=== PATIENT | male | born 2000 | race Caucasian/White ===

== ENCOUNTER 2020-05-12 16:51 | Emergency (ER) | payer MEDICAID, SELFPAY ==
[2020-05-12 17:02] VITALS: BP 137/86; PULSE 98; RESP 18; TEMP 36.7; O2SAT 98; BMI 19.9
--- NOTE | 2020-05-12 17:47 | XR_ITS ---
EXAMINATION: XR FOOT, RIGHT CLINICAL INFORMATION: Laceration. COMPARISON: None TECHNIQUE: AP, lateral, and oblique views of the right foot. FINDINGS: The bones and soft tissues are normal. No fracture. Alignment is anatomic. Joint spaces are maintained. XR/XR foot RT min 3V IMPRESSION: Unremarkable right foot exam.
[2020-05-12] MEDS: Lidocaine HCl 2 % MPF 5 ML VIAL SUBCUT (18:18)
--- NOTE | 2020-05-12 18:20 | ED_ITS ---
HPI - Wound/Laceration General Chief Complaint: Wound/Laceration Stated Complaint: LEG LAC Time Seen by Provider: 05/12/20 17:43 Source: patient Mode of arrival: ambulatory Limitations: no limitations History of Present Illness HPI narrative: 19-year-old male with no significant past medical history presents with laceration to the dorsal aspect of the right lateral foot. Patient states he was walking and cut himself on a broken piece of glass. He has full range of motion, was able to clean out the wound and applied a bandage. Bleeding is well controlled and patient was able to ambulate into this facility without assistance. He does not recall when his last Tdap vaccine was updated. He has no other concerns or complaints at this time. Onset (ago): hour(s) (Within the hour of arrival) Extremity Location: right: foot Place: home Patient tetanus UTD: No Context: accidental Associated symptoms: pain Treatments prior to arrival: bandage Related Data Allergies Allergy/AdvReac Type Severity Reaction Status Date / Time No Known Allergies Allergy Verified 05/12/20 17:01 Review of Systems Review of Systems: Constitutional: No Fever, No Chills ENT/Mouth: No Ear Pain, No Hoarseness, No sore throat Eyes: No Eye Pain, No Swelling, No Redness, No Foreign Body Cardiovascular: No Chest Pain, No SOB Respiratory: No Cough, No Dyspnea Gastrointestinal: No Nausea, No Vomiting, No Diarrhea, No abdominal Pain Genitourinary: No Dysuria, No Hematuria Musculoskeletal: positive right foot pain, No Myalgias, No Joint Swelling Skin: Positive laceration right lateral dorsal aspect of the foot, No rash Neuro: No Weakness, No Numbness, No Paresthesias, No Loss of Consciousness, No Dizziness, No Headache Psych: No Anxiety/Panic, No Depression Heme/Lymph: no easy bruising, no Lymphadenopathy Endocrine: No Polyuria, No Polydipsia Yes all other systems are reviewed and are negative [facility] Past Medical History Attestation statement: The following information was validated with the patient. Source: old records reviewed Social History Social History Smoking Status: Never smoker Use of substances other than those prescribed or required for medical reasons: No Advance Directives: No Advance Directives Information Provided: No Physical Exam Vital Signs: Vital Signs: Last Vital Signs Temp 98.1 F 05/12/20 17:02 Pulse 98 05/12/20 17:02 Resp 18 05/12/20 17:02 BP 137/86 05/12/20 17:02 Pulse Ox 98 05/12/20 17:02 Body Mass Index 19.9 Appearance: Alert. Oriented X3. No acute distress. Eyes: Pupils equal, round and reactive to light. ENT: Pharynx normal. Neck: Normal inspection. Neck supple. CVS: Normal heart rate and rhythm. Pulses normal. Respiratory: No respiratory distress. Breath sounds normal. Abdomen: Soft and nontender. Skin: 1.5 cm laceration to the dorsal aspect of the right foot. Skin warm and dry. Normal skin color. Normal skin turgor. Extremities: No lower extremity edema. Full range of motion to all extremities, brisk capillary refill and equal pedal pulses. Neuro: No motor deficit. No sensory deficit. Course Course Course Narrative: 19-year-old male with laceration to his right foot. Plan of care is for x-rays, Tdap vaccine and to repair laceration. Please refer to procedure note for full details. Prepped and draped in sterile fashion. Patient tolerated procedure well. X-rays negative for foreign body. Patient continues to have brisk capillary refill and equal pedal pulses with full range of motion without focal neural deficit or sensory deficit to bilateral lower extremities status post laceration repair. Patient verbalized understanding of and agrees to plan of care discharge home. Procedures Laceration Laceration 1: Site: lower extremity Side (If applicable): right Size (cm): 1.5 Description: linear Depth: simple, single layer Local Anesthetic: lidocaine 2% Amount of anesthesia used (mL): 4 Pre-repair: wound explored, irrigated extensively and deep structures intact Skin layer closed with: nylon Size (cm): 4-0 Number of sutures: 3 Technique: simple, interrupted MDM - Wound/Laceration Differential Diagnosis Differential diagnosis: Likely laceration Medical Records Attestation: I reviewed the patient's medical records. Imaging Data Right foot x-ray: Attestation: I personally reviewed and interpreted this imaging study as follows: Radiologist's impression: EXAMINATION: XR FOOT, RIGHT CLINICAL INFORMATION: Laceration. COMPARISON: None TECHNIQUE: AP, lateral, and oblique views of the right foot. FINDINGS: The bones and soft tissues are normal. No fracture. Alignment is anatomic. Joint spaces are maintained. XR/XR foot RT min 3V IMPRESSION: Unremarkable right foot exam. Discharge Plan Discharge Clinical Impression: Laceration Patient Disposition: Home, Self-Care Instructions: Laceration (ED) Additional Instructions: You were evaluated for laceration to the right foot. Please keep the area clean and dry, do not soak or bathe or submerge foot in water for long periods of time until the wound is completely healed. Please return in 10 days to have sutures removed. Monitor for signs and symptoms of infection including but not limited to swelling, purulent drainage, and increased pain. If you notice these symptoms please seek medical attention the emergency department or primary care. Thank you for choosing this emergency department for evaluation. Please follow-up with primary care physician as needed. Return to the emergency department for any new, concerning, or worsening symptoms. Interventions: ED Discharge Assessment Last Done: 05/12/20 18:28 Discharge Date/Time: 05/12/20 18:30
== END 2020-05-12 18:30 | disposition home or self-care (01) ==
PROVIDERS: Emergency Provider Emergency Medicine Emergency Medical Services
DX: S91.311A Laceration without foreign body, right foot, initial encounter (principal); M79.671 Pain in right foot; W25.XXXA Contact with sharp glass, initial encounter; Y93.89 Activity, other specified; Y92.89 Other specified places as the place of occurrence of the external cause
CPT/HCPCS: 12001; 73630; 90471; 90715; 99284

== ENCOUNTER 2021-11-06 08:04 | Emergency (ER) | payer MEDICAID, SELFPAY ==
--- NOTE | ~2021-11-06 | XR_ITS ---
EXAMINATION: XR RIBS, LEFT CLINICAL INFORMATION: Posterior left rib pain for 2 days. COMPARISON: None TECHNIQUE: PA view of the chest as well as 3 views of the left ribs. FINDINGS: Lungs are clear. No consolidation, pneumothorax, or pleural effusion. The cardiomediastinal silhouette and pulmonary vasculature are normal. Osseous structures are unremarkable. Ribs are intact. No fractures are identified. XR/XR ribs LT min 3V w CXR1V IMPRESSION: No displaced fracture.
[2021-11-06 09:04] VITALS: BP 116/65; PULSE 63; RESP 17; TEMP 36.6; O2SAT 98; BMI 18.3
--- NOTE | 2021-11-06 12:36 | ED.BACK ---
HPI - Back Pain/Injury General Chief Complaint: Back Pain/Injury Stated Complaint: Back pain Time Seen by Provider: 11/06/21 12:27 Source: patient Mode of arrival: ambulatory Limitations: no limitations History of Present Illness HPI Narrative: 21-year-old male with no significant medical history presents for back pain. Patient states that 4 days ago, he lifted a heavy trash bag and twisted his torso lifting it. States that the next day he felt pain in his back, especially on his left side. States the pain is worse with twisting. No blunt trauma, no fevers, leg weakness, saddle paresthesias, hematuria, urinary retention, urinary or bowel incontinence, no history of IV drug use. MD elicited complaint: back pain Pertinent past history: recent trauma Onset (ago): day(s) (4) Timing: constant Severity: moderate Related Data Previous Rx's Medication Instructions Recorded cyclobenzaprine 5 mg tablet 5 mg PO TID PRN muscle spasm #7 11/06/21 tabs ketorolac 10 mg tablet 10 mg PO TID 5 days #15 tabs 11/06/21 Allergies Allergy/AdvReac Type Severity Reaction Status Date / Time No Known Allergies Allergy Verified 05/12/20 17:01 Review of Systems Constitutional: Constitutional: Denies body ache(s), Denies chills, Denies fatigue, Denies fever(s), Denies malaise and Denies weakness Eyes: Eyes: Denies diplopia Cardiovascular: Cardiovascular: Denies chest pain, Denies syncope, Denies leg edema, Denies lightheadedness, Denies Loss of Consciousness, Denies palpitations and Denies dyspnea Respiratory: Respiratory: Denies chest congestion, Denies cough and Denies dyspnea Gastrointestinal: Gastrointestinal: Denies abdominal pain, Denies hematochezia, Denies constipation, Denies fecal incontinence, Denies diarrhea and Denies vomiting Genitourinary: Genitourinary: Denies difficulty urinating and Denies urinary incontinence Musculoskeletal: Musculoskeletal: Reports back pain Neurologic: Denies confusion, Denies syncope and Denies weakness Psychiatric: Psychiatric: Denies anxiety, Denies confusion and Denies depression Endocrine: Endocrine: Denies fatigue and Denies palpitations PMFSH Social History Social History Advance Directives: No Advance Directives Information Provided: Yes Physical Exam Vital Signs: Vital Signs: Last Vital Signs Temp 98 F 11/06/21 09:04 Pulse 63 11/06/21 09:04 Resp 17 11/06/21 09:04 BP 116/65 11/06/21 09:04 Pulse Ox 98 11/06/21 09:04 O2 Del Method 11/06/21 09:04 BMI result Body Mass Index 18.3 Const: General: No confusion Nutritional Appearance: well nourished Orientation/consciousness: No confusion Limitations: no limitations Eyes: Conjunctivae: conjunctivae normal Pupils: Equal, round and reactive pupils present EOM: EOMs intact bilaterally Neck: Neck: Yes full ROM, Yes no lymphadenopathy and Yes supple Chest: Chest palpation & inspection: normal inspection of the chest, no crepitus and localized rib tenderness with anteroposterior compression left anterior-axillary line Resp: Effort & Inspection: normal respiratory effort and able to speak in complete sentences Auscultation: clear to auscultation bilaterally, no crackles, no rales, no rhonchi and no wheezes Cardio: Rate: regular rate Rhythm: regular rhythm Heart sounds: S1 normal heart sound present and S2 normal heart sound present GI: Inspection: Yes normal to inspection Palpation (GI): Soft to palpation, nontender, no guarding and not rigid Percussion: Yes normal to percussion Auscultation: normal bowel sounds : General: Yes no CVA tenderness Back/Spine/Pelvis: Back: no CVA tenderness Cervical Spine: normal cervical lordosis, cervical ROM normal, No Cervical spine tenderness and No step off deformity Thoracic/Lumbar Spine: straight leg raise negative bilaterally, No thoraco-lumbar spasm, No thoracic spinal tenderness and No lumbar spinal tenderness Skin: General skin exam: no rashes or lesions noted Neuro: General: No confusion Cranial nerves: Yes Equal, round and reactive pupils present Extrem: Right lower extremity: normal to inspection, full ROM and normal capillary refill Left lower extremity: normal to inspection, full ROM and normal capillary refill Psych: Appearance: grossly normal Affect: normal affect Attitude: cooperative Thought process: Normal thought process present Course Course Course Narrative: 21-year-old male presents with left-sided rib pain after lifting heavy garbage bag and twisting 4 days ago. On exam, patient has stable vitals, patient has no CVA tenderness, no vertebral tenderness, straight leg raise is negative, patient has no red flag symptoms. Patient is tender to palpation over his left anterior ribs. Most likely musculoskeletal, will rule out fracture with x-ray, give Toradol and Flexeril Reevaluation(s) Reevaluation #1: Patient is feeling better with ketorolac and Flexeril. Rib x-rays are negative. Will send home with the ketorolac and Flexeril, follow-up with primary care provider FINDINGS: Lungs are clear. No consolidation, pneumothorax, or pleural effusion. The cardiomediastinal silhouette and pulmonary vasculature are normal. Osseous structures are unremarkable. Ribs are intact. No fractures are identified. XR/XR ribs LT min 3V w CXR1V IMPRESSION: No displaced fracture. Discharge Plan Discharge Clinical Impression: Rib pain on left side Patient Disposition: Home, Self-Care Additional Instructions: I have prescribed ketorolac to your pharmacy, please take this 3 times a day for the next 5 days. Do not take any ibuprofen containing products while your taking this medication. I have also prescribed cyclobenzaprine, this is a muscle relaxant, it can make you sleepy, so do not drive her sign any important papers while you are on it, you may take it at night to help you sleep. Please call your primary care provider for follow-up appointment from today's emergency room visit. Please return to the emergency room for any new or concerning symptoms. Prescriptions: New ketorolac 10 mg tablet 10 mg PO TID 5 Days Qty: 15 0RF cyclobenzaprine 5 mg tablet 5 mg PO TID PRN (Reason: muscle spasm) Qty: 7 0RF
[2021-11-06] MEDS: Cyclobenzaprine HCl 10 MG TABLET PO (12:42)
[2021-11-06] MEDS: Ketorolac Tromethamine 30 MG/ML VIAL IM (12:42)
== END 2021-11-06 15:08 | disposition home or self-care (01) ==
PROVIDERS: Emergency Provider Emergency Medicine
DX: M54.50 Low back pain, unspecified (principal); R07.81 Pleurodynia; Z79.899 Other long term (current) drug therapy
CPT/HCPCS: 71101; 96372; 99283; 99284; J1885

== ENCOUNTER 2022-05-12 19:30 | Emergency (ER) | payer MEDICAID, SELFPAY ==
[2022-05-12 19:42] VITALS: BP 145/91; PULSE 108; RESP 18; TEMP 37.2; O2SAT 97; BMI 19.2
--- NOTE | 2022-05-12 19:44 | ED.GENADULT ---
HPI - General Adult General Chief complaint: General Medical Stated complaint: STD check Time Seen by Provider: 05/12/22 19:44 Source: patient Mode of arrival: ambulatory Limitations: no limitations History of Present Illness HPI narrative: 21 yo male presents to the ER for evaluation of possible STI. He states he was intoxicated this weekend and thinks he had unprotected sex. He wants to be checked and treated for STIs. He denies any symptoms at this time. No urinary symptoms. Denies rashes or lesions. No N/V/D, abdominal pain or testicular pain complaint: STI check Onset (ago): day(s) Location: genitals Radiation: non-radiation Relieving factors: none Exacerbating factors: none Associated symptoms: denies other symptoms Treatments prior to arrival: none Related Data Previous Rx's Medication Instructions Recorded cyclobenzaprine 5 mg tablet 5 mg PO TID PRN muscle spasm #7 11/06/21 tabs ketorolac 10 mg tablet 10 mg PO TID 5 days #15 tabs 11/06/21 doxycycline hyclate 100 mg tablet 100 mg PO BID #13 tabs 05/12/22 Allergies Allergy/AdvReac Type Severity Reaction Status Date / Time No Known Allergies Allergy Verified 05/12/22 19:44 Review of Systems Review of Systems: Yes all other systems are reviewed and are negative Physical Exam ED Vital Signs: Vital Signs - 24 hr 05/12/22 19:42 Temperature 99 F Pulse Rate 108 H Respiratory Rate 18 Blood Pressure 145/91 H Pulse Oximetry 97 Oxygen Delivery Method Room Air BMI result Body Mass Index 19.2 Appearance: Alert. Oriented X3. No acute distress. HEENT: normal inspection CVS: Normal heart rate and rhythm. Respiratory: No respiratory distress. Skin: Skin warm and dry. Normal skin color. Normal skin turgor. No rashes. Extremities: normal inspection Neuro: Oriented X 3. grossly normal, nonfocal Course Course Course Narrative: 21 yo male presents for STI check and treatment. Denies symptoms. Will give IM rocephin and d/c home on PO doxycyline. Encouraged to go to [facility] for further STI testing. Stable for d/c [facility] Medical Decision Making Differential Diagnosis Differential Diagnoses: The differential diagnosis associated with the presentation includes STI, HSV, urethritis, UTI, HPV, HIV, syphilis External Record Review External record reviewed: Prior outpatient radiology Prescription Management I considered prescription management with: Antibiotic empiric treatment started Discharge Plan Discharge Clinical Impression: High risk heterosexual behavior Patient Disposition: Home, Self-Care Additional Instructions: You were tested and treated for possible Gonorrhea and Chlamydia. Take the prescribed antibiotic starting tomorrow morning, you were given 1st dose today in the ER. If you tests come back positive we will call you. If we do not call you, they were negative. Recommend setting up the patient portal so you can check the results yourself. Results can take several days. Prescriptions: New doxycycline hyclate 100 mg tablet 100 mg PO BID Qty: 13 0RF No Action ketorolac 10 mg tablet 10 mg PO TID 5 Days Qty: 15 0RF cyclobenzaprine 5 mg tablet 5 mg PO TID PRN (Reason: muscle spasm) Qty: 7 0RF
[2022-05-12] MEDS: cefTRIAXone sodium 500 MG, Lidocaine HCl 1 % MPF 1 ML IM (19:55)
[2022-05-12] MEDS: Doxycycline Monohydrate 100 MG CAPSULE PO (19:56)
--- NOTE | 2022-05-13 00:06 | ED.GENADULT ---
HPI - General Adult General Chief complaint: General Medical Stated complaint: STD check Time Seen by Provider: 05/12/22 19:44 Source: patient Mode of arrival: ambulatory Limitations: no limitations History of Present Illness HPI narrative: This is a 21-year-old male presenting to the emergency department requesting a test that will tell him when the last time he had sex was. Patient was seen earlier today for STD check and was medicated with doxycycline and Keflex. Patient has no additional complaints at this time. He is just wondering if the test exist that can tell him when the last time he had sex was. He tells me he does not remember. Location: genitals Relieving factors: none Exacerbating factors: none Associated symptoms: denies other symptoms Treatments prior to arrival: none Related Data Previous Rx's Medication Instructions Recorded cyclobenzaprine 5 mg tablet 5 mg PO TID PRN muscle spasm #7 11/06/21 tabs ketorolac 10 mg tablet 10 mg PO TID 5 days #15 tabs 11/06/21 doxycycline hyclate 100 mg tablet 100 mg PO BID #13 tabs 05/12/22 Allergies Allergy/AdvReac Type Severity Reaction Status Date / Time No Known Allergies Allergy Verified 05/12/22 19:44 Review of Systems Review of Systems: Constitutional : No Weight loss, No Fever, No Chills, No Fatigue, No Malaise ENT/Mouth : No sore throat, No Rhinorrhea Eyes: No Eye Pain, No Swelling, No Redness Cardiovascular : No Chest Pain, No SOB, No Dyspnea on Exertion, No Orthopnea, No Edema, No Palpitations Respiratory : No Cough, No Sputum, No Wheezing Gastrointestinal : No Nausea, No Vomiting, No Diarrhea, No Constipation, No abdominal Pain, No Hematochezia, No Melena Genitourinary : No Dysuria, No Urinary Frequency, No Hematuria, Musculoskeletal : No joint pain, No Myalgias, No Joint Swelling Skin : No Skin Lesions, No rash Neuro : No Weakness, No Numbness, No Dizziness, No Headache Psych : No Anxiety/Panic, No Depression All other systems reviewed and are negative Yes all other systems are reviewed and are negative [facility] Social History Social History Advance Directives: No Advance Directives Information Provided: Yes Physical Exam ED Vital Signs: Vital Signs - 24 hr 05/12/22 19:42 Temperature 99 F Pulse Rate 108 H Respiratory Rate 18 Blood Pressure 145/91 H Pulse Oximetry 97 Oxygen Delivery Method Room Air BMI result Body Mass Index 19.2 Vital signs stable Appearance: Alert.? Oriented X3.? No acute distress.? Head: Normocephalic, atraumatic, no step-offs or deformities Eyes: Pupils equal, round and reactive to light.? CVS: Normal heart rate and rhythm.? Pulses normal.? Respiratory: No respiratory distress.? Breath sounds normal.? Abdomen: Soft and nontender.? Skin: Skin warm and dry.? Normal skin color.? Normal skin turgor.? Extremities 5/5 strength to bilateral upper and lower extremities Neuro: Oriented X 3.? No motor deficit.? No sensory deficit. CN 2-12 intact Medications Administered Discontinued Medications Generic Name Dose Route Start Last Admin Trade Name Freq PRN Reason Stop Dose Admin Ceftriaxone Sodium 500 mg/ 0 mg 05/12/22 19:43 05/12/22 19:55 Lidocaine HCl 1 ml IM 05/12/22 19:44 1 kit ONCE ONE Administration Doxycycline Monohydrate 100 mg 05/12/22 19:43 05/12/22 19:56 Doxycycline Monohydrate 100 Mg Capsule PO 05/12/22 19:44 100 mg ONCE ONE Administration Medical Decision Making Medical Decision Making [facility] Narrative: 21-year-old male presents requesting testing that will determine when the last time patient had sex was Physical exam benign I explained to patient that a test like this does not exist. I explained we can do STD testing but patient tells me that he had that done earlier. Plan- dc home Differential Diagnosis Differential Diagnoses: The differential diagnosis associated with the presentation includes STD/STI, high-risk heterosexual sexual behavior Discharge Plan Discharge Clinical Impression: High risk heterosexual behavior Patient Disposition: Home, Self-Care Instructions: Sexually Transmitted Diseases (ED), Safe Sex Practices (ED) Additional Instructions: You were tested and treated for possible Gonorrhea and Chlamydia. Take the prescribed antibiotic starting tomorrow morning, you were given 1st dose today in the ER. If you tests come back positive we will call you. If we do not call you, they were negative. Recommend setting up the patient portal so you can check the results yourself. Results can take several days. Prescriptions: New doxycycline hyclate 100 mg tablet 100 mg PO BID Qty: 13 0RF No Action ketorolac 10 mg tablet 10 mg PO TID 5 Days Qty: 15 0RF cyclobenzaprine 5 mg tablet 5 mg PO TID PRN (Reason: muscle spasm) Qty: 7 0RF Interventions: ED Discharge Assessment Last Done: 05/12/22 20:00 Discharge Date/Time: 05/12/22 20:01
== END 2022-05-12 20:01 | disposition home or self-care (01) ==
PROVIDERS: Emergency Provider Emergency Medicine
DX: Z20.2 Contact with and (suspected) exposure to infections with a predominantly sexual mode of transmission (principal); Z72.51 High risk heterosexual behavior
CPT/HCPCS: 96372; 99282; 99284; J0696

== ENCOUNTER 2022-05-12 23:42 | Emergency (ER) | payer MEDICAID, SELFPAY ==
[2022-05-12 23:44] VITALS: BP 127/92; PULSE 99; RESP 20; TEMP 37.3; O2SAT 96; BMI 19.2
--- NOTE | 2022-05-12 23:55 | ED.GENADULT ---
HPI - General Adult General Chief complaint: General Medical Stated complaint: was here earlier, says wrong STI test Source: patient Mode of arrival: ambulatory Limitations: no limitations History of Present Illness HPI narrative: This is a 21-year-old male presenting to the emergency department requesting a test that will tell him when the last time he had sex was.? Patient was seen earlier today for STD check and was medicated with doxycycline and rocephin.? Patient has no additional complaints at this time.? He is just wondering if the test exist that can tell him when the last time he had sex was.? He tells me he does not remember. Related Data Previous Rx's Medication Instructions Recorded cyclobenzaprine 5 mg tablet 5 mg PO TID PRN muscle spasm #7 11/06/21 tabs ketorolac 10 mg tablet 10 mg PO TID 5 days #15 tabs 11/06/21 doxycycline hyclate 100 mg tablet 100 mg PO BID #13 tabs 05/12/22 Allergies Allergy/AdvReac Type Severity Reaction Status Date / Time No Known Allergies Allergy Verified 05/12/22 19:44 Review of Systems Review of Systems: Constitutional : No Weight loss, No Fever, No Chills, No Fatigue, No Malaise ENT/Mouth : No sore throat, No Rhinorrhea Eyes: No Eye Pain, No Swelling, No Redness Cardiovascular : No Chest Pain, No SOB, No Dyspnea on Exertion, No Orthopnea, No Edema, No Palpitations Respiratory : No Cough, No Sputum, No Wheezing Gastrointestinal : No Nausea, No Vomiting, No Diarrhea, No Constipation, No abdominal Pain, No Hematochezia, No Melena Genitourinary : No Dysuria, No Urinary Frequency, No Hematuria, Musculoskeletal : No joint pain, No Myalgias, No Joint Swelling Skin : No Skin Lesions, No rash Neuro : No Weakness, No Numbness, No Dizziness, No Headache Psych : No Anxiety/Panic, No Depression Yes all other systems are reviewed and are negative [facility] Past Medical History Attestation statement: The following information was validated with the patient. Source: old records reviewed and nursing notes reviewed Social History Social History Advance Directives: No Advance Directives Information Provided: Yes Physical Exam ED Vital Signs: Vital Signs - 24 hr 05/12/22 23:44 Temperature 99.1 F Pulse Rate 99 Respiratory Rate 20 Blood Pressure 127/92 H Pulse Oximetry 96 Oxygen Delivery Method Room Air BMI result Body Mass Index 19.2 vss Appearance: Alert.? Oriented X3.? No acute distress.? Head:? Normocephalic, atraumatic, no step-offs or deformities Eyes: Pupils equal, round and reactive to light.? CVS: Normal heart rate and rhythm.? Pulses normal.? Respiratory: No respiratory distress.? Breath sounds normal.? Abdomen: Soft and nontender.? Skin: Skin warm and dry.? Normal skin color.? Normal skin turgor.? Extremities 5/5 strength to bilateral upper and lower extremities Neuro: Oriented X 3.? No motor deficit.? No sensory deficit. CN 2-12 intact Medical Decision Making Medical Decision Making MDM Narrative: 21-year-old male presents requesting testing that will determine when the last time patient had sex was Physical exam benign I explained to patient that a test like this does not exist. I explained we can do STD testing but patient tells me that he had that done earlier. Plan- dc home Differential Diagnosis Differential Diagnoses: The differential diagnosis associated with the presentation includes STD/STI, high-risk heterosexual sexual behavior Critical Care Time Critical Care Time Critical Care Time: No Discharge Plan Discharge Clinical Impression: High risk heterosexual behavior Patient Disposition: Home, Self-Care Instructions: Sexually Transmitted Diseases (ED), Safe Sex Practices (ED) Additional Instructions: Take your medications as prescribed. If you were prescribed antibiotics today, it is important that you take your medication to their entirety, do not skip any doses, do not finish them early. Follow-up with your primary care provider this week. Return to the emergency department with new or worsening symptoms. Such as fevers, chills, chest pain, shortness of breath, nausea, vomiting, dizziness, headache, vision changes, lethargy In case of emergency call 911 Prescriptions: No Action ketorolac 10 mg tablet 10 mg PO TID 5 Days Qty: 15 0RF cyclobenzaprine 5 mg tablet 5 mg PO TID PRN (Reason: muscle spasm) Qty: 7 0RF doxycycline hyclate 100 mg tablet 100 mg PO BID Qty: 13 0RF Referrals: Physician,Unknown J [Primary Care Provider] - 2 days Interventions: ED Discharge Assessment Last Done: 05/13/22 00:02 Discharge Date/Time: 05/13/22 00:03
== END 2022-05-13 00:03 | disposition home or self-care (01) ==
PROVIDERS: Emergency Provider Emergency Medicine
DX: Z72.51 High risk heterosexual behavior (principal)
CPT/HCPCS: 99282

== ENCOUNTER 2023-08-27 17:14 | Emergency (ER) | payer MEDICAID, SELFPAY ==
[2023-08-27 17:51] VITALS: BP 115/64; PULSE 72; RESP 20; TEMP 36.9; O2SAT 98; BMI 20.7
--- NOTE | 2023-08-27 17:53 | ED.MALEGU ---
HPI - Male Genitourinary General Chief complaint: Urogenital-Male Stated complaint: std check Time Seen by Provider: 08/27/23 19:22 Source: patient Mode of arrival: ambulatory Limitations: no limitations History of Present Illness HPI Narrative: 23-year-old male no past medical history presents to ED for STD check. Patient states usually she gets STD checks every couple of months. Patient denies any symptoms. Patient denies any recent sexual partner or sexual activity. Patient denies any genitourinary symptoms. Related Data Previous Rx's ?Medication ?Instructions ?Recorded cyclobenzaprine 5 mg tablet 5 mg PO TID PRN muscle spasm #7 11/06/21 tabs ketorolac 10 mg tablet 10 mg PO TID 5 days #15 tabs 11/06/21 doxycycline hyclate 100 mg tablet 100 mg PO BID #13 tabs 05/12/22 Allergies Allergy/AdvReac Type Severity Reaction Status Date / Time No Known Allergies Allergy Verified 08/27/23 17:52 Review of Systems Review of Systems: Wants STD check Yes all other systems are reviewed and are negative [facility] Social History Social History Smoked in Last 30 Days: No Use of substances other than those prescribed or required for medical reasons: No Advance Directives: No Advance Directives Information Provided: No Physical Exam Vital Signs: Vital Signs: Last Vital Signs Temp 97.1 F 08/27/23 20:43 Pulse 60 08/27/23 20:43 Resp 16 08/27/23 20:43 BP 125/76 08/27/23 20:43 Pulse Ox 98 08/27/23 20:43 O2 Del Method Room Air 08/27/23 20:43 BMI result Body Mass Index 20.7 Const: General: cooperative, healthy appearing, comfortable, no acute distress, well developed, alert and awake Orientation/consciousness: oriented to person, oriented to place, oriented to time and patient oriented x3 HEENT: Head: Yes normal to inspection, Yes No palpable skull fracture present, Yes normocephalic, Yes atraumatic and No abrasion Eyes: General: appearance normal, both eyes and all related structures Neck: Neck: Yes normal visual inspection, Yes full ROM, Yes no lymphadenopathy, Yes no meningeal signs, Yes trachea midline, Yes supple, No anterior neck swelling and No tender Chest: Chest palpation & inspection: normal inspection of the chest and normal palpation of entire chest wall Resp: Effort & Inspection: normal respiratory effort and able to speak in complete sentences Auscultation: clear to auscultation bilaterally Cardio: Jugular venous distension: no JVD Heart sounds: S1 normal heart sound present and S2 normal heart sound present GI: Inspection: Yes normal to inspection Palpation (GI): Soft to palpation, not firm, nontender, no guarding and not rigid : Other: REfuse genitourinary exam General: No CVA tenderness and Yes no CVA tenderness Back/Spine/Pelvis: Back: no CVA tenderness, No CVA tenderness and No back tenderness Skin: General skin exam: no rashes or lesions noted, elasticity normal and turgor normal Neuro: General: oriented to person, oriented to place, oriented to time, patient oriented x3, gait normal, tone normal, moves all extremities, Normal light touch and pain sensation, no meningeal signs, no focal motor deficits, CN's II-XI intact bilaterally and normal sensation to monofilament Extrem: General: Yes normal to inspection, Yes full ROM and Yes capillary refill normal Psych: Appearance: grossly normal, well kempt and not disheveled Course Course Course Narrative: RME: 23-year-old male presents to ED for routine STD check. Patient states asymptomatic and has not been sexually active. Patient states no new partner. Patient just periodically checked for STD cleaning gonorrhea. Patient asymptomatic. Medical Decision Making Medical Decision Making [facility] Narrative: 23 yold male presents to the ED for for STD check. Patient wants routine STD check but has not been active. Patient refused exam. Patient preferred to be with and covered with the results instead of empiric treatment. Patient informed of go to [facility] testing of HIV hepatitis and other STDs. Patient explained worrisome signs Lab Data Labs: Lab Results 08/27/23 Range/Units 19:33 Urine Color Yellow Urine Appearance Clear Urine pH 6.0 (5.0-9.0) Ur Specific [place] 1.020 (1.005-1.025) Urine Protein Negative (Neg-Trace) mg/dL Urine Glucose (UA) Negative (Negative) mg/dL Urine Ketones Negative (Negative) mg/dL Urine Blood Negative (Negative) Urine Nitrite Negative (Negative) Ur Leukocyte Esterase Negative (Negative) Chlam trachomat DNA PCR NOT DETECTED (Not Detect.) N.gonorrhoeae DNA (PCR) NOT DETECTED (Not Detect.) Discharge Plan Discharge Clinical Impression: Normal exam Patient Disposition: Home, Self-Care Instructions: Normal Exam (ED) Additional Instructions: Return to the ED immediately for any dysuria, hematuria, penile discharge, penile lesions, testicular pain, abdominal pain, nausea, vomiting, flank pain, fever, chills,or any other concerning symptoms. You will be called back with results if abnormal. Recommend follow-up with primary care provider Prescriptions: No Action ketorolac 10 mg tablet 10 mg PO TID 5 Days Qty: 15 0RF cyclobenzaprine 5 mg tablet 5 mg PO TID PRN (Reason: muscle spasm) Qty: 7 0RF doxycycline hyclate 100 mg tablet 100 mg PO BID Qty: 13 0RF Interventions: ED Discharge Assessment Last Done: 08/27/23 20:43 Discharge Date/Time: 08/27/23 20:47 Print Language: Serbian
[2023-08-27 19:45] LABS: Appearance Urine Clear; Color Urine Yellow; Glucose Urine UA Negative (Negative); Leukocyte Esterase Urine Negative (Negative); Nitrite Urine Negative (Negative); Urine Blood Negative (Negative); Urine Ketones Negative (Negative); Urine Protein Negative (Neg-Trace)
[2023-08-27 20:41] VITALS: BP 125/76; PULSE 60; RESP 16; TEMP 36.2; O2SAT 98
[2023-08-27 20:43] VITALS: BP 125/76; PULSE 60; RESP 16; TEMP 36.2; O2SAT 98
--- NOTE | 2023-08-27 20:44 | PC.NURSE ---
pt a&o, no sign of distress upon discharge, Reviewed discharge instructions with pt. pt verbalized understanding.
[2023-08-28 05:09] LABS: CT PCR NOT DETECTED (Not Detect.); NG PCR NOT DETECTED (Not Detect.)
== END 2023-08-27 20:47 | disposition home or self-care (01) ==
PROVIDERS: Physician Assistant; Emergency Provider Emergency Medicine
DX: Z20.2 Contact with and (suspected) exposure to infections with a predominantly sexual mode of transmission (principal)
CPT/HCPCS: 0353U; 81003; 99283; 99284